=== PATIENT | female | born 1950 | race Caucasian/White ===

== ENCOUNTER 2017-09-09 06:49 | Day surgery (SDC) | payer OTHER ==
[~2017-09-09] VITALS: Ht 170.2 cm; Wt 102.1 kg
[~2017-09-09 06:49] MED LIST: ASPIR 8181 M1 PO; DAILY MULTIPLE1 EACH PO; LISINOPRIL30 MG PO; PRAVACHOL40 MG PO
[2017-09-09 07:16] VITALS: BP 175/79
[2017-09-09 07:16] LABS: HEMATOCRIT 43.9 % (36.0-46.0); HEMOGLOBIN 14.7 G/DL (11.9-15.5); MCH 31.4 PG (29.0-34.0); MCHC 33.5 G/DL (30.0-36.0); MCV 93.8 FL (83-99); PLATELET COUNT 213 K/uL (156-360); RBC DIS.WIDTH-CV 13.2 % (11.8-14.6); RBC DIS.WIDTH-SD 45.5 % (39-53); RED BLOOD COUNT 4.68 M/uL (3.80-5.20); WHITE BLOOD COUNT 6.9 K/uL (4.1-10.2)
[2017-09-09 07:23] LABS: INTER. NORMALIZED RATIO 0.9
[2017-09-09 07:25] LABS: PTT 29.6 SEC (25-37)
[2017-09-09 07:48] LABS: CHLORIDE 104 MEQ/L (99-109); CREATININE 0.9 MG/DL (0.6-1.3); GFR ESTIMATE (CALCULATED) > 59 mL/min/; GLUCOSE 131 mg/dL (70-99); POTASSIUM 3.9 MEQ/L (3.7-5.4); SODIUM 141 MEQ/L (136-147); UREA NITROGEN (BUN) 20 mg/dL (9-23)
[2017-09-09] MEDS ORDERED: IBUPROFEN800 MG PO (09:54)
[2017-09-09 10:50] VITALS: BP 167/72
[2017-09-09 11:37] VITALS: BP 170/74
== END 2017-09-09 11:45 | disposition home or self-care (01) ==
LOC: SDC 06:49
PROVIDERS: Obstetrics & Gynecology
DX: C54.1 Malignant neoplasm of endometrium (principal); I10 Essential (primary) hypertension; E78.5 Hyperlipidemia, unspecified; E66.9 Obesity, unspecified; Z68.35 Body mass index [BMI] 35.0-35.9, adult; Z86.010 Personal history of colon polyps; Z79.82 Long term (current) use of aspirin; Z82.3 Family history of stroke; Z83.49 Family history of other endocrine, nutritional and metabolic diseases; Z83.3 Family history of diabetes mellitus
CPT/HCPCS: 80048; 85027; 85610; 85730; 86850; 86900; 86901; 88305; J0131; J1100; J1885; J2405; J3010; Q0175